=== PATIENT | female | born 2000 | race Caucasian/White ===

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

== ENCOUNTER 2019-01-01 13:50 | Emergency (ER) | payer BC ==
[2019-01-01 13:56] VITALS: BP 113/66
--- NOTE | 2019-01-01 14:24 | UC ---
Abdominal Pain Female HPI - HPI Summary HPI Summary: 18-year-old female presents with persistent diffuse abdominal pain, nausea, and intermittent fever. She was evaluated in the [facility] ED on 12/28/2018 for same. She had a mildly elevated temperature of 100 .0 F and was mildly tachycardic in the 120s however vital signs did normalize over the course of her evaluation. CBC and CMP normal. Serum Hcg negative. UA showed 2+ blood, 1+ bacteria, but urine culture showed no growth. CT abdomen/pelvis showed relatively low SMA/ aortic angle with narrowing of left renal vein with suggestion of some collateralization consistent with a process such as nutcracker syndrome but otherwise negative. She was discharged on famotidine, ondansetron, and oxycodone -acetaminophen for pain. Patient states that her pain is unchanged from previous despite taking her medications as prescribed. Denies chest pain, palpitations, shortness of breath, vomiting, diarrhea, dysuria, frequency, urgency, hematuria, vaginal discharge, or abnormal vaginal bleeding. - History of Current Complaint Chief Complaint: UCAbdominalPain Stated Complaint: STOMACH PAIN Time Seen by Provider: 01/01/19 14:17 Hx Last Menstrual Period: 01/01/19 Pain Intensity: 6 Allergies/Adverse Reactions: Allergies Allergy/AdvReac Type Severity Reaction Status Date / Time No Known Allergies Allergy Verified 01/01/19 13:56 PMH/Surg Hx/FS Hx/Imm Hx Previously Healthy: Yes - Denies significant PMH - Surgical History Surgical History: None - Family History Known Family History: Positive: Diabetes - Aunt Negative: Cardiac Disease, Hypertension - Social History Occupation: Student Lives: Dormitory/Roommates Alcohol Use: None Substance Use Type: None Smoking Status (MU): Never Smoked Tobacco Review of Systems All Other Systems Reviewed And Are Negative: Yes Constitutional: Positive: Fever, Chills Skin: Negative: Rash ENT: Positive: Nasal Discharge. Negative: Sore Throat, Ear Ache, Sinus Congestion, Sinus Pain/Tenderness Respiratory: Negative: Shortness Of Breath, Cough Cardiovascular: Negative: Palpitations, Chest Pain Gastrointestinal: Positive: Abdominal Pain, Nausea. Negative: Vomiting, Diarrhea Genitourinary: Negative: Dysuria, Hematuria, Frequency, Urgency, Vaginal/Penile Discharge, Abnormal Bleeding Musculoskeletal: Positive: Negative Neurological: Positive: Negative Is Patient Immunocompromised?: No Physical Exam - Summary Physical Exam Summary: GENERAL APPEARANCE: Well developed, well nourished, alert and cooperative, and appears to be in no acute distress. NOSE: No nasal congestion or discharge noted. THROAT: Oral cavity and pharynx normal. No inflammation, swelling, exudate, or lesions. Teeth and gingiva in good general condition. NECK: Neck supple, non-tender without lymphadenopathy. CARDIAC: Normal S1 and S2. No S3, S4 or murmurs. Rhythm is regular. There is no peripheral edema, cyanosis or pallor. Extremities are warm and well perfused. Capillary refill is less than 2 seconds. LUNGS: Clear to auscultation without rales, rhonchi, wheezing or diminished breath sounds. ABDOMEN: Positive bowel sounds. Soft, nondistended. Diffuse abdominal tenderness without guarding or rebound. No masses or hepatosplenomegally. No CVA tenderness. MUSKULOSKELETAL: ROM intact to all extremities. No joint erythema or tenderness. Normal muscular development. Normal gait. SKIN: Skin normal color, texture and turgor with no lesions or eruptions. Triage Information Reviewed: Yes Vital Signs: Initial Vital Signs Temp 97.7 F 01/01/19 13:51 Pulse 75 01/01/19 13:51 Resp 16 01/01/19 13:51 BP 113/66 01/01/19 13:51 Pulse Ox 100 01/01/19 13:51 Vital Signs Reviewed: Yes Abd Pain Female Course/Dx - Course Course Of Treatment: 18-year-old female presents with persistent diffuse abdominal pain, nausea, and intermittent fever. She was evaluated in the [facility] ED on 12/28/2018 for same. She had a mildly elevated temperature of 100 .0 F and was mildly tachycardic in the 120s however vital signs did normalize over the course of her evaluation. CBC and CMP normal. Serum Hcg negative. UA showed 2+ blood, 1+ bacteria, but urine culture showed no growth. CT abdomen/pelvis showed relatively low SMA/aortic angle with narrowing of left renal vein with suggestion of some collateralization consistent with a process such as nutcracker syndrome but otherwise negative. She was discharged on famotidine, ondansetron, and oxycodone-acetaminophen for pain. Patient states that her pain is unchanged from previous despite taking her medications as prescribed. Denies chest pain, palpitations, shortness of breath, vomiting, diarrhea, dysuria, frequency, urgency, hematuria, vaginal discharge, or abnormal vaginal bleeding. Afebrile. Vital signs stable. Exam revealed some diffuse abdominal tenderness without guarding or rebound but otherwise unremarkable. Considering her continued abdominal pain despite treatment I'm recommending that she be reevaluated in the emergency room since we do not have lab capabilities at this facility. Patient is agreeable to this and is electing to transport via private vehicle. - Differential Dx/Diagnosis Differential Diagnosis: Appendicitis, Diverticulitis, Gall Bladder Disease, Irritable Bowel Syndrome, Pancreatitis, Peptic Ulcer Disease, Urinary Tract Infection Provider Diagnosis: Acute generalized abdominal pain Discharge - Sign-Out/Discharge Documenting (check all that apply): Patient Departure All imaging exams completed and their final reports reviewed: No Studies - Discharge Plan Condition: Stable Disposition: HOME-RECOMMEND TO ED Patient Education Materials: Acute Abdominal Pain (ED) Referrals: No Primary Care Phys,[facility] [Primary Care Provider] - Additional Instructions: With your continued abdominal pain and intermittent fevers I am recommending that you return to the emergency room for re-evaluation since we do not have lab services at this facility. Please go directly to the emergency room. Do not eat or drink anything until you have been evaluated. - Billing Disposition and Condition Condition: STABLE Disposition: Home-Recommend to ED
== END 2019-01-01 14:40 | disposition home health service (06) ==
LOC: UCEAST 13:50
DX: R10.84 Generalized abdominal pain (principal); R50.9 Fever, unspecified; R11.0 Nausea; R00.0 Tachycardia, unspecified
CPT/HCPCS: 99212; G0463

== ENCOUNTER 2019-01-01 15:03 | Emergency (ER) | payer BC ==
[2019-01-01 15:11] VITALS: BP 114/58
[2019-01-01] MEDS ORDERED: Lidocaine 2% VISCOUS* 15 ML UDC PO ONE (15:44)
[2019-01-01] MEDS ORDERED: Al Hydrox/Mg Hydrox/Simet LIQ* 30 ML UDC PO ONE (15:44)
--- NOTE | 2019-01-01 15:47 | ED ---
Abdominal Pain/Female - HPI Summary HPI Summary: Patient is a 18-year-old female who presents emergency department for roughly 5 days. Patient was seen and nontender emergency department Saturday for similar symptoms and had blood work and a CAT scan done which unremarkable. Patient associated symptoms of nausea. She denies sore throat, ear pain, sinus congestion, vomiting, diarrhea, urinary symptoms, vaginal bleeding or discharge. Patient was prescribed Zofran, Percocet and Pepcid at her last visit. She states his medications have minimally helped. Patient was seen at urgent care today and referred to the ER for further evaluation. Patient states pain is mostly to her epigastric region and occasionally radiates into chest. She denies modifying factors. Symptoms are mild-moderate in severity. No current modifying factors. Patient otherwise denies past medical history and has never had pain like this before. - History of Current Complaint Chief Complaint: EDAbdPain Stated Complaint: ABD PAIN Time Seen by Provider: 01/01/19 15:07 Hx Obtained From: Patient Hx Last Menstrual Period: 01/01/19 Pain Intensity: 7 Allergies/Adverse Reactions: Allergies Allergy/AdvReac Type Severity Reaction Status Date / Time No Known Allergies Allergy Verified 01/01/19 13:56 PMH/Surg Hx/FS Hx/Imm Hx Previously Healthy: Yes Endocrine/Hematology History: Denies: Hx Diabetes Cardiovascular History: Denies: Hx Hypertension Respiratory History: Denies: Hx Chronic Obstructive Pulmonary Disease (COPD) History: Denies: Hx Acute Renal Failure, Hx Renal Disease Sensory History: Denies: Hx Legally Blind, Hx Deafness Opthamlomology History: Denies: Hx Legally Blind Infectious Disease History: No Infectious Disease History: Denies: Traveled Outside the [place] in Last 30 Days - Family History Known Family History: Positive: Diabetes - Aunt Negative: Cardiac Disease, Hypertension - Social History Occupation: Student Lives: Dormitory/Roommates Alcohol Use: None Substance Use Type: Reports: None Smoking Status (MU): Never Smoked Tobacco Review of Systems Constitutional: Negative Negative: Fever, Chills Eyes: Negative ENT: Negative Cardiovascular: Negative Negative: Chest Pain Respiratory: Negative Negative: Shortness Of Breath, Cough Positive: Abdominal Pain, Nausea. Negative: Vomiting, Diarrhea Genitourinary: Negative Skin: Negative Neurological: Negative All Other Systems Reviewed And Are Negative: Yes Physical Exam Triage Information Reviewed: Yes Vital Signs On Initial Exam: Initial Vitals Temp Pulse Resp BP Pulse Ox 97.8 F 66 15 114/58 98 01/01/19 15:07 01/01/19 15:07 01/01/19 15:07 01/01/19 15:07 01/01/19 15:07 Vital Signs Reviewed: Yes Appearance: Positive: Well-Appearing - Pt. sitting up in bed in NAD. S.O. present. Skin: Positive: Warm, Dry Head/Face: Positive: Normal Head/Face Inspection Eyes: Positive: Normal, EOMI, ABBY, Conjunctiva Clear ENT: Positive: Pharynx normal, TMs normal. Negative: Tonsillar swelling, Tonsillar exudate Neck: Positive: Supple Respiratory/Lung Sounds: Positive: Clear to Auscultation, Breath Sounds Present Cardiovascular: Positive: Normal, RRR Abdomen Description: Positive: Other: - Abd. is soft with mild tenderness to epigastric region, RUQ, RLQ and LLQ. No rebound tenderness or guarding.. Negative: CVA Tenderness (R), CVA Tenderness (L) Pelvic Exam: Positive: Other - Exam performed with Araceli redman. External genitalia unremarkable. Spuculum reveals a scant amount of whitish discharge and blood. No CMT. Pt. notes she is just finishing her menstrual cycle. Cultures obtained. Neurological: Positive: Normal, CN Intact II-III Psychiatric: Positive: Affect/Mood Appropriate Diagnostics - Vital Signs Vital Signs Temp Pulse Resp BP Pulse Ox 01/01/19 15:07 97.8 F 66 15 114/58 98 - Laboratory Result Diagrams: 01/01/19 15:52 01/01/19 15:52 Lab Statement: Any lab studies that have been ordered have been reviewed, and results considered in the medical decision making process. Abdominal Pain Fem Course/Dx - Course Course Of Treatment: Pt. presenting for ongoing abd. pain. She is afebrile. Pt. states most of her pain is the epigastric region but she does have mild tenderness to lower abd. on exam. Overall pt. has a very benign exam. Will recheck basic labs and perform pelvic exam and cultures today. When speaking with pt. she became tearful when asked about home. 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 Will try GI cocktail for epigastric pain. Pt. notes pain today is not as severe as it was on her last visit. On re- exam pt. is resting comfortably. Blood work is unremarkable. Pt. had negative U/ A culture a few days ago. Pending vaginal cultures. Feel pt.'s complaints may be secondary to anxiety. Recommend pt. schedule f.u with [facility] for further evaluation. Will call if cultures are postive. Pt. will return if sxs change or worsen. DC home with S.O. - Diagnoses Differential Diagnosis: Positive: Appendicitis, Bowel Obstruction, Constipation , Ectopic , Ovarian Cyst, Pelvic Inflammatory Disease, , Renal Colic, Urinary Tract Infection Provider Diagnoses: Abdominal pain Discharge - Sign-Out/Discharge Documenting (check all that apply): Patient Departure Patient Received Moderate/Deep Sedation with Procedure: No - Discharge Plan Condition: Good Disposition: HOME Patient Education Materials: Acute Abdominal Pain (ED) [facility] - Additional Instructions: Call [facility] tomorrow to schedule a close follow up appointment Will call if culture come back positive Continue Pepcid as directed Avoid caffeine, foods high in spice, acid, alcohol, fat, grease Return to ER if symptoms change or worsen - Billing Disposition and Condition Condition: GOOD Disposition: Home
[2019-01-01 16:08] LABS: ABS Basophils 0 10^3/ul (0-0.2); ABS Eosinophils 0.1 10^3/ul (0-0.6); ABS Lymphocytes 1.9 10^3/ul (1.0-4.8); ABS Monocytes 0.5 10^3/ul (0-0.8); ABS Neutrophils 4.6 10^3/ul (1.5-7.7); ABS Nucleated RBC 0 10^3/ul; Hematocrit 42 % (35-47); Hemoglobin 14.1 g/dl (12.0-16.0); Mean Corpuscular HGB Conc 34 g/dl (31-36); Mean Corpuscular Hemoglobin 27 pg (27-31); Mean Corpuscular Volume 80 fL (80-97); Mean Platelet Volume 7.9 fL (7.4-10.4); Platelet Count 390 10^3/ul (150-450); Red Blood Count 5.21 10^6/ul (4.00-5.40); Red Cell Distribution Width 15 % (10.5-15); White Blood Count 7.1 10^3/ul (3.5-10.8)
[2019-01-01 16:09] LABS: Lymphocyte % 27.1 %; Nucleated Red Blood Cells % 0
[2019-01-01 16:29] LABS: ALT 11 U/L (7-52); AST 21 U/L (13-39); Albumin 4.7 g/dL (3.2-5.2); Albumin/Globulin Ratio 1.7 (1-3); Alkaline Phosphatase 75 U/L (34-104); Anion Gap 5 mmol/L (2-11); BUN/Creatinine Ratio 19.6 (8-20); Blood Urea Nitrogen 18 mg/dL (6-24); CO2 Carbon Dioxide 29 mmol/L (22-32); Calcium 9.1 mg/dL (8.6-10.3); Chloride 104 mmol/L (101-111); EGFR African American 95.2 (>60); EGFR Non-African American 78.6 (>60); Globulin 2.8 g/dL (2-4); Glucose 89 mg/dL (70-100); Sodium 138 mmol/L (135-145); Total Protein 7.5 g/dL (6.4-8.9)
[2019-01-01 16:36] LABS: HCG Pregnancy < 0.60 mIU/mL
[2019-01-02 13:21] LABS: Neisseria gonorrhoeae (GC) RNA Negative (Negative)
[2019-01-02 13:36] LABS: Trichomonas vaginalis Result Negative (Negative)
== END 2019-01-01 17:20 | disposition home or self-care (01) ==
LOC: ED 15:03
DX: R10.13 Epigastric pain (principal); R11.0 Nausea; R10.814 Left lower quadrant abdominal tenderness; R10.813 Right lower quadrant abdominal tenderness
CPT/HCPCS: 36415; 80053; 84702; 85025; 87480; 87491; 87510; 87591; 87661; 99282; A9270-GY

== ENCOUNTER 2019-12-22 17:57 | Emergency (ER) | payer BC ==
--- NOTE | 2019-12-22 21:00 | ED ---
Lower Extremity - HPI Summary HPI Summary: Pt is a 19 y/o F presenting to the ED with a chief complaint of RLE pain. She had surgery on 11/26/19 to remove excess bone from a compound fx and repair torn ligaments & tendons. Shes been healing fine, but last night into today she had severe pain at the area of the surgery and in her R calf, severe enough that it woke her up from her sleep. She denies other sx, including fever. - History of Current Complaint Chief Complaint: EDSoftTissueLowExtr Stated Complaint: POSS BLOOD CLOT PER PT Time Seen by Provider: 12/22/19 20:52 Hx Obtained From: Patient Hx Last Menstrual Period: 01/01/19 Onset of Pain: Days Onset/Duration: Still Present Severity Initially: Moderate Severity Currently: Severe Pain Intensity: 7 Pain Scale Used: 0-10 Numeric Timing: Constant, Lasting Hours Location: Is Diffuse - RLE (calf, foot) Associated Signs And Symptoms: Negative: Fever Aggravating Factor(s): Nothing Alleviating Factor(s): Nothing Able to Bear Weight: No - post-surgical - Allergies/Home Medications Allergies/Adverse Reactions: Allergies Allergy/AdvReac Type Severity Reaction Status Date / Time No Known Allergies Allergy Verified 12/22/19 18:08 PMH/Surg Hx/FS Hx/Imm Hx Previously Healthy: Yes Endocrine/Hematology History: Denies: Hx Diabetes Cardiovascular History: Denies: Hx Hypertension Respiratory History: Denies: Hx Chronic Obstructive Pulmonary Disease (COPD) History: Denies: Hx Acute Renal Failure, Hx Renal Disease Sensory History: Denies: Hx Legally Blind, Hx Deafness Opthamlomology History: Denies: Hx Legally Blind Infectious Disease History: No Infectious Disease History: Denies: Traveled Outside the [place] in Last 30 Days - Family History Known Family History: Positive: Diabetes - Aunt Negative: Cardiac Disease, Hypertension - Social History Alcohol Use: None Hx Substance Use: No Substance Use Type: Reports: None Hx Tobacco Use: No Smoking Status (MU): Never Smoked Tobacco Review of Systems Negative: Fever Positive: Arthralgia, Myalgia, Edema All Other Systems Reviewed And Are Negative: Yes Physical Exam - Summary Physical Exam Summary: Appearance: Well-appearing, Well-nourished, lying in bed comfortable Skin: Warm, dry, no obvious rash Eyes: sclera anicteric, no conjunctival pallor ENT: mucous membranes moist Neck: deferred Respiratory: No signs of respiratory distress Cardiovascular: Appears well perfused, pulses are nml Abdomen: deferred Musculoskeletal: R ankle shows well-healing surgical incision with steristrips in place. There is no wound dehiscence. There is no drainage. No warmth or redness. Neurological: Awake and alert, mentation is normal, speech is fluent and appropriate Psychiatric: affect is normal, does not appear anxious or depressed Triage Information Reviewed: Yes Vital Signs On Initial Exam: Initial Vitals Temp Pulse Resp BP Pulse Ox 97.8 F 88 16 131/73 100 12/22/19 18:06 12/22/19 18:06 12/22/19 18:06 12/22/19 18:06 12/22/19 18:06 Vital Signs Reviewed: Yes Procedures - Sedation Patient Received Moderate/Deep Sedation with Procedure: No Diagnostics - Vital Signs Vital Signs Temp Pulse Resp BP Pulse Ox 12/22/19 20:35 98.4 F 80 16 106/63 98 12/22/19 18:06 97.8 F 88 16 131/73 100 - Laboratory Result Diagrams: 12/22/19 21:06 Lab Statement: Any lab studies that have been ordered have been reviewed, and results considered in the medical decision making process. - Ultrasound DVT US Ultrasound Interpretation Completed By: Radiologist Summary of Ultrasound Findings: No DVT in the right lower extremity. ED physician has reviewed this report. Lower Extremity Course/Dx - Course Course Of Treatment: Pt is a 19 y/o F presenting to the ED with a chief complaint of RLE pain. She is healing from surgery, but last night into today she had severe pain at the area of the surgery and in her R calf, severe enough that it woke her up from her sleep. She denies other sx, including fever. On exam, R ankle shows well-healing surgical incision with steristrips in place. There is no wound dehiscence. There is no drainage. No warmth or redness. DVT US shows no DVT in the R lower extremity. Pt's lab results WNL. She will be d/c 'ed with instructions to f/u with her surgeon. She is stable and agreeable with this plan. - Diagnoses Provider Diagnoses: Leg pain Discharge ED - Sign-Out/Discharge Documenting (check all that apply): Patient Departure - Discharge Plan Condition: Good Disposition: HOME Additional Instructions: The ultrasound was negative for blood clots in the legs, and the blood work we did was not suggestive of an infection developing in the operative site, so the cause of your pain is unclear but we haven't turned up anything worrisome. If this persists contact your surgeon's office, they may want to see you sooner than your already scheduled post-op appointment. - Billing Disposition and Condition Condition: GOOD Disposition: Home - Attestation Statements Document Initiated by Scribe: Yes Documenting Scribe: Marie Covington Provider For Whom Richy is Documenting (Include Credential): Raymundo Winters MD. Scribe Attestation: Marie Basilio scribed for Raymundo Winters MD. on 12/23/19 at 0543. Scribe Documentation Reviewed: Yes Provider Attestation: The documentation as recorded by the Marie arenas accurately reflects the service I personally performed and the decisions made by me, Raymundo Winters MD. Status of Scribe Document: Viewed
[2019-12-22 21:18] LABS: ABS Eosinophils 0.1 10^3/ul (0-0.6); ABS Lymphocytes 2.2 10^3/ul (1.0-4.8); ABS Monocytes 0.8 10^3/ul (0-0.8); ABS Neutrophils 5.4 10^3/ul (1.5-7.7); Hematocrit 37 % (35-47); Hemoglobin 12.8 g/dL (12.0-16.0); Lymphocyte % 25.5 %; Mean Corpuscular HGB Conc 35 g/dL (31-36); Mean Corpuscular Hemoglobin 28 pg (27-31); Mean Corpuscular Volume 81 fL (80-97); Platelet Count 321 10^3/uL (150-450); Red Blood Count 4.51 10^6 /uL (3.70-4.87); Red Cell Distribution Width 15 % (10-15); White Blood Count 8.5 10^3/uL (3.5-10.8)
[2019-12-22 22:21] VITALS: BP 113/68
== END 2019-12-22 22:45 | disposition home or self-care (01) ==
LOC: ED 17:57
DX: M79.661 Pain in right lower leg (principal); R60.0 Localized edema; Z98.890 Other specified postprocedural states
CPT/HCPCS: 36415; 85025; 86140; 99282